=== PATIENT | male | born 2000 | race Asian ===

== ENCOUNTER 2021-03-28 15:47 | Outpatient (CLI) | payer BC | END 2021-03-28 15:48 | disposition home or self-care (01) | LOC: BICRAD 15:47 | PROVIDERS: ATTEND Family Medicine | DX: J18.9 Pneumonia, unspecified organism (principal); R05.9 Cough, unspecified; J45.41 Moderate persistent asthma with (acute) exacerbation | CPT/HCPCS: 71045 ==